=== PATIENT | female | born 1935 | race Caucasian/White ===

== ENCOUNTER 2017-10-10 17:07 | Inpatient (IN) | payer OTHER ==
--- NOTE | 2017-10-10 17:38 | PDOC ---
History of Present Illness - General Chief Complaint: Weakness Stated Complaint: WEAKNESS Time Seen by Provider: 10/10/17 17:38 - History of Present Illness Initial Comments: 10/10/17 18:34 The patient is a 81 year old female with a history of arthritis, falls who presents for evaluation generalized weakness. The patient is accompanied by her family who assist in providing the history. They note that the patient suffers from frequent falls and experienced a fall 4 days ago and was admitted to [facility] for evaluation with a negative work up at that time. However, they note that the patient has been experiencing worsening lower extremity weakness and generalized weakness over the past few days prompting their presentation to the ED for evaluation. The patient reports some cough, but otherwise denies fevers, chills, SOB, chest pain, nausea, vomiting, abdominal pain, or changes with urination or bowel movements. Past History - Past Medical History Allergies/Adverse Reactions: Allergies Allergy/AdvReac Type Severity Reaction Status Date / Time ciprofloxacin [From Cipro] Allergy Verified 10/11/17 04:35 Sulfa (Sulfonamide Allergy Verified 10/11/17 04:35 Antibiotics) Home Medications: Ambulatory Orders Ammonium Lactate Cream [Lac-Hydrin 12% *Cream*] 1 applic TP DAILY 10/11/17 Duloxetine HCl [Cymbalta] 30 mg PO DAILY 10/11/17 Esomeprazole Magnesium [Nexium 24Hr] 20 mg PO DAILY 10/11/17 Melatonin 5 mg PO HS 10/11/17 Primidone 50 mg PO BID 10/11/17 Tiotropium [place] [Spiriva] 1 inh IH DAILY 10/11/17 Zolpidem Tartrate [Ambien] 5 mg PO HS 10/11/17 Review of Systems - Review of Systems Comments:: 10/10/17 18:41 Constitutional: Generalized Weakness. No fevers, chills, malaise HEENT: No Rhinorrhea, nasal congestion, visual changes Cardiovascular: No chest pain, syncope, palpitations, lightheadedness Respiratory: Cough. No SOB, Hemoptysis, Gastrointestinal: No Abdominal pain, Nausea, Vomiting, Constipation, Diarrhea, Melena Genitourinary: No Dysuria, Frequency, Urgency, Hesitancy, Hematuria, Flank pain Musculoskeletal: No Myalgia, arthralgia Skin: No rashes, itching, bruising, pallor Neurologic: Headache. No Dizziness, Numbness, Weakness, or Tingling Psychiatric: No Hallucinations. No SI or HI *Physical Exam - Physical Exam Comments: 10/10/17 18:42 General Appearance: Nourished. No Apparent Distress HEENT: EOMI, LEEANN. No Pharyngeal Erythema, Tonsillar Exudate, Tonsillar Erythema Neck: No Cervical Lymphadenopathy Respiratory/Chest: Lungs Clear, Normal Breath Sounds. No Crackles, Rales, Rhonchi, Wheezing Cardiovascular: Regular Rhythm, Regular Rate. No Murmur, Gallops, Rubs Gastrointestinal/Abdominal: Normal Bowel Sounds, Soft. No Guarding, Rebound, Tenderness Musculoskeletal: No CVA Tenderness Extremity: Normal Capillary Refill Integumentary: Normal Color, Dry, Warm Neurologic: hims manager II-XII NML intact, Fully Oriented, Alert, Normal Mood/Affect, Normal Response, ED Treatment Course - LABORATORY CBC & Chemistry Diagram: 10/12/17 07:36 10/11/17 07:06 Medical Decision Making - Medical Decision Making 10/10/17 18:43 The patient is a 81 year old female with a history of arthritis, falls who presents for evaluation generalized weakness. Differential includes but is not limited to: UTI, Pneumonia, ACS, Infectious, Metabolic Derangement. Given the patient's history and physical exam, we will obtain a cbc, cmp, ua, urine culture, lactate, ekg, chest plain film, blood cultures to evaluate further for possible etiologies. We will treat in the meantime with iv tylenol and continue to monitor and reassess in the meantime. 10/10/17 19:09 Patient signed out to the night team pending lab results and imaging. Likely admission. *DC/Admit/Observation/Transfer Diagnosis at time of Disposition: Urinary tract infection - Discharge Dispostion Condition at time of disposition: Fair - Referrals - Patient Instructions - Post Discharge Activity
--- NOTE | 2017-10-10 18:01 | PDOC ---
Attending Attestation - HPI HPI: 10/10/17 19:01 patient is a 81 year old female, with a significant past medical history of frequent falls, central tremors(with deep brain stimulator), and arthritis, who presents to the emergency department with generalized weakness for several days. Per son, the patient was seen at [facility] 3 days ago s/p mechanical fall, where she did not hit her head. At the time, patient had blood work done, which were negative and patient was discharged. After being discharged, son reports worsening weakness in the lower extremities and difficulty ambulating. Patient reports headache and cough, but denies any fever, chills, dizziness, lightheadedness, or changes in vision. She denies any chest pain, shortness of breath, diaphoresis, or palpitations. She denies any abdominal pain, nausea, vomiting, diarrhea, or constipation. She denies any dysuria, hematuria, frequency, or urgency. - Medical Decision Making 10/10/17 19:01 Documentation prepared by Travon Loyola, acting as medical device for Mackenzie Galvan MD. <Travon Loyola - Last Filed: 10/10/17 19:01> - Resident Resident Name: Luis Rodriguez - ED Attending Attestation I have performed the following: I have examined & evaluated the patient, The case was reviewed & discussed with the resident, I agree w/resident's findings & plan, Exceptions are as noted - Physicial Exam PE: 10/15/17 19:56 General Appearance: Nourished. No Apparent Distress HEENT: EOMI, LEEANN. No Pharyngeal Erythema, Tonsillar Exudate, Tonsillar Erythema Neck: No Cervical Lymphadenopathy Respiratory/Chest: Lungs Clear, Normal Breath Sounds. No Crackles, Rales, Rhonchi, Wheezing Cardiovascular: Regular Rhythm, Regular Rate. No Murmur, Gallops, Rubs Gastrointestinal/Abdominal: Normal Bowel Sounds, Soft. No Guarding, Rebound, Tenderness Musculoskeletal: No CVA Tenderness Extremity: Normal Capillary Refill Integumentary: Normal Color, Dry, Warm Neurologic: end frazer II-XII NML intact, Fully Oriented, Alert, Normal Mood/Affect, Normal Response, - Medical Decision Making Ms Bustos presents to the ER with c/o generalized weakness. Large differential Labs sent UA sent All labs pending Pt Signed out to the overnight team Anticipate admission <Mackenzie Galvan - Last Filed: 10/15/17 19:58>
[2017-10-10] MEDS ORDERED: ACETAMINOPHEN 1000 MG/100 ML VIAL (NON FORMULARY) IVPB ONE (18:45)
--- NOTE | 2017-10-10 19:08 | PDOC ---
*Physical Exam - Vital Signs Last Vital Signs Temp Pulse Resp BP Pulse Ox 98.7 F 87 20 109/65 94 L 10/10/17 17:48 10/10/17 17:48 10/10/17 17:48 10/10/17 17:48 10/10/17 17:48 ED Treatment Course - LABORATORY CBC & Chemistry Diagram: 10/10/17 18:00 10/10/17 18:00 Medical Decision Making - Medical Decision Making 81 yo woman with pmh of mechanical fall on Sunday, presenting with fatigue and LE weakness. EKG, non-con CT pending. Sign-out given by Dr. Rodriguez. Will likely admit to the hospitalist group. 10/10/17 19:07 *DC/Admit/Observation/Transfer Diagnosis at time of Disposition: Urinary tract infection Qualifiers: Urinary tract infection type: site unspecified Hematuria presence: without hematuria Qualified Code(s): N39.0 - Urinary tract infection, site not specified - Discharge Dispostion Condition at time of disposition: Fair Decision to Admit order: Yes Decision to Admit order Date/Time: Discussed case with Hospitalist Dr. Mcmahon. Will admit as Tele obs. 10/11/17 01:33 - Referrals - Patient Instructions - Post Discharge Activity
[2017-10-10] MEDS ORDERED: ACETAMINOPHEN INJECTION 100 ML IVPB ONE (19:09)
[2017-10-10 19:19] LABS: BASO % 0.5 % (0-2.0); EOS % 2.2 % (0-4.5); HEMATOCRIT 39.7 % (32.4-45.2); HEMOGLOBIN 12.8 GM/dL (10.7-15.3); LYMPH % 18.8 % (8-40); MCH 28.1 pg (25.7-33.7); MCHC 32.4 g/dl (32.0-36.0); MEAN CELL VOLUME 86.8 fl (80-96); MEAN PLT VOLUME 7.4 fl (7.5-11.1); NEUT % 66.5 % (42.8-82.8); PLATELET COUNT 177 K/MM3 (134-434); RBC 4.57 M/mm3 (3.60-5.2); RDW 16.3 % (11.6-15.6); WHITE BLOOD COUNT 3.6 K/mm3 (4.0-10.0)
[2017-10-10 20:00] LABS: INR 1.1 (0.82-1.09); PROTHROMBIN TIME (PATIENT) 12.4 SEC (9.7-13.0)
[2017-10-10 20:03] LABS: ACTIVATED PTT 27.8 SECONDS (26.9-34.4)
[2017-10-10] MEDS ORDERED: SODIUM CHLORIDE 1,000 ML IV STA (22:07)
[2017-10-10 22:48] LABS: ALBUMIN 3.5 g/dl (3.5-5.0); ALK PHOS 78 U/L (32-92); ANION GAP 5 (8-16); BILIRUBIN,TOTAL < 0.5 mg/dl (0.2-1.0); BLOOD UREA NITROGEN 20 mg/dl (7-18); CALCIUM 8.5 mg/dl (8.4-10.2); CHLORIDE 100 mmol/L (98-107); CO2 29 mmol/L (22-28); CREATININE 0.9 mg/dl (0.6-1.3); GLUCOSE,RANDOM 103 mg/dl (74-106); POTASSIUM 4.5 mmol/L (3.5-5.1); SGOT/AST 19 U/L (10-42); SGPT/ALT 10 U/L (10-40); SODIUM 134 mmol/L (136-145); TOT PROT 6.7 g/dl (6.4-8.3)
[2017-10-10 23:00] LABS: URINE APPEARANCE CLEAR; URINE BILIRUBIN NEGATIVE (<2.0 mg/dL); URINE COLOR DKYELLOW; URINE GLUCOSE (UA) NEGATIVE (NEGATIVE); URINE KETONE TRACE (NEGATIVE); URINE NITRITE NEGATIVE (NEGATIVE); URINE UROBILINOGEN NEGATIVE mg/dL (0.2-1.0)
[2017-10-10 23:07] LABS: URINE LEUK ESTERASE 2+ (NEGATIVE); URINE PROTEIN 1+ (NEGATIVE)
[2017-10-10 23:29] LABS: URINE MUCUS RARE
[2017-10-10] MEDS ORDERED: KETOROLAC TROMETHAMINE 30 MG/1 ML VIAL IVPUSH ONE (23:52)
[2017-10-11] MEDS ORDERED: KETOROLAC TROMETHAMINE 30 MG/1 ML VIAL ONE (00:02)
--- NOTE | 2017-10-11 02:05 | HP ---
CHIEF COMPLAINT: le weakness PCP: HISTORY OF PRESENT ILLNESS: 81 yr old woman with hx of tremors s/p Deep brain stimulator placement, chronic back pain, arthritis presents from [facility] c/o lower extremity weakness since Sunday. She woke up on Sunday feeling weak and felt like she was unable to weight bear or move her legs in bed. She was taken to [facility] where they kept her in the ED without any investigation and after several hours she was discharged being told that there was nothing wrong. She spent Sunday and Sunday in bed, she fell on Sunday - a mechinical slip out of bed onto the floor, an aide at the facility helped get her back into bed. denies LOC or head trauma. She does not feel that the weakness had gotten any better or worse over the last two days. due to no improvement, she was brought to the ED. She had been had been having multiple falls for some time. also c/o urinary retention and constipation for past several days and headache since this morning. feels like she has been losing weight during the last month because of poor appetite. She was brought by her son from [place] to live at the assisted living facility 2 months ago at baseline she uses a rolling walker. denies chest pain, sob, palpiations, abdominal pain, dysuria, fever, cough. ER course was notable for: (1) urinalysis with 6wbc, +ketones, +leuk est (2) (3) Recent Travel: from [place] PAST MEDICAL HISTORY: tremors arthritis PAST SURGICAL HISTORY: b/l knee replacements 2007 and 2013 Deep brain stimulator placement 2011 Social History: Smoking: remote hx, occasionally had a cigarette Alcohol: denies Drugs: medical marijuana, smoked in [place] under physician direction for chronic back pain, [facility] use [facility]. now she says she takes prescribed opiates for pain. Family History: [place] Allergies No Known Allergies Allergy (Verified 10/10/17 18:34) HOME MEDICATIONS: pt does not recall her all her medications: recalls she takes something for her tremors; Mysoline and nexium for occasional heart burn REVIEW OF SYSTEMS CONSTITUTIONAL: Absent: fever, chills, diaphoresis, generalized weakness, malaise, loss of appetite, weight change HEENT: Absent: rhinorrhea, nasal congestion, throat pain, throat swelling, difficulty swallowing, mouth swelling, ear pain, eye pain, visual changes CARDIOVASCULAR: Present: peripheral edema Absent: chest pain, syncope, palpitations, irregular heart rate, lightheadedness , RESPIRATORY: Absent: cough, shortness of breath, dyspnea with exertion, orthopnea, wheezing, stridor, hemoptysis GASTROINTESTINAL: Present: constipation, Absent: abdominal pain, abdominal distension, nausea, vomiting, diarrhea, melena , hematochezia GENITOURINARY: Absent: dysuria, frequency, urgency, hesitancy, hematuria, flank pain, genital pain MUSCULOSKELETAL: Present: back pain, Absent: myalgia, arthralgia, joint swelling, neck pain SKIN: Absent: rash, itching, pallor HEMATOLOGIC/IMMUNOLOGIC: Absent: easy bleeding, easy bruising, lymphadenopathy, frequent infections ENDOCRINE: Present: unexplained weight loss, poor appetite Absent: unexplained weight gain, , heat intolerance, cold intolerance NEUROLOGIC: Present: headache, unsteady gait, Absent: focal weakness or paresthesias, dizziness, seizure, mental status changes, bladder or bowel incontinence PHYSICAL EXAMINATION Vital Signs - 24 hr 10/10/17 10/10/17 17:48 23:20 Temperature 98.7 F 98.1 F Pulse Rate 87 Pulse Rate [ 80 Apical] Respiratory 20 20 Rate Blood Pressure 109/65 Blood Pressure 118/67 [Right Arm] O2 Sat by Pulse 94 L 95 Oximetry (%) GENERAL: Awake, alert, and fully oriented, in no acute distress. HEAD: Normal with no signs of trauma. EYES: Pupils equal, round and reactive to light, extraocular movements intact, sclera anicteric, conjunctiva clear. No lid lag. EARS, NOSE, THROAT:oropharynx clear without exudates. Moist mucous membranes. NECK: Normal range of motion, supple without lymphadenopathy, JVD, or masses. no bruits no thyromegaly LUNGS: Breath sounds equal, clear to auscultation bilaterally. No wheezes, and no crackles. No accessory muscle use. HEART: Regular rate and rhythm, normal S1 and S2 without murmur, rub or gallop. CHEST: right upper with DPS device subq - overlying skin intact no erythema no tenderness ABDOMEN: Soft, nontender, not distended, normoactive bowel sounds, no guarding, no rebound, no masses. No hepatomegaly or splenomegaly. MUSCULOSKELETAL: No CVA tenderness. ulnar deviation in b/l MCP joints. resting tremor in b/l hands. UPPER EXTREMITIES: 2+ pulses, warm, well-perfused. No cyanosis. No clubbing. No peripheral edema. LOWER EXTREMITIES: 2+ pulses, warm, well-perfused. TTP anterior shins b/l. briuse in right medial knee. abrasion on mid-left clemons - so s/s of cellulitis. 1 + b/l peripheral edema. well-healed b/l knee scars anteriorly NEUROLOGICAL: Cranial nerves II-XII intact. Normal speech. facial symmetry. 3/ 5 b/l hand microwave technician, 4/5 biceps/triceps/shoulder extension and flexion. sensation intact on face, arms, forearms and hands. 4/5 b/l hip extension and flexion, 4/ 5 b/l knee extension and flexion. 3/5 plantar/dorsiflexion in right ankle. 4/5 plantar and dorsiflexion in left ankle. SKIN: Warm, dry, normal turgor, no rashes noted, normal capillary refill. Laboratory Results - last 24 hr 10/10/17 10/10/17 10/10/17 18:00 18:00 18:00 WBC 3.6 L RBC 4.57 Hgb 12.8 Hct 39.7 MCV 86.8 MCH 28.1 MCHC 32.4 RDW 16.3 H Plt Count 177 MPV 7.4 L Neutrophils % 66.5 Lymphocytes % 18.8 Monocytes % 12.0 H Eosinophils % 2.2 Basophils % 0.5 Nucleated RBC % 0 PT with INR 12.40 INR 1.10 PTT (Actin FS) 27.8 Sodium 134 L Potassium 4.5 Chloride 100 Carbon Dioxide 29 H Anion Gap 5 L BUN 20 H Creatinine 0.9 Creat Clearance w eGFR > 60 Random Glucose 103 Calcium 8.5 Total Bilirubin < 0.5 AST 19 ALT 10 Alkaline Phosphatase 78 Troponin I Total Protein 6.7 Albumin 3.5 Urine Color Urine Appearance Urine pH Ur Specific [place] Urine Protein Urine Glucose (UA) Urine Ketones Urine Blood Urine Nitrite Urine Bilirubin Urine Urobilinogen Ur Leukocyte Esterase Urine WBC (Auto) Urine RBC (Auto) Urine Mucus 10/10/17 10/10/17 18:00 22:13 WBC RBC Hgb Hct MCV MCH MCHC RDW Plt Count MPV Neutrophils % Lymphocytes % Monocytes % Eosinophils % Basophils % Nucleated RBC % PT with INR INR PTT (Actin FS) Sodium Potassium Chloride Carbon Dioxide Anion Gap BUN Creatinine Creat Clearance w eGFR Random Glucose Calcium Total Bilirubin AST ALT Alkaline Phosphatase Troponin I < 0.03 Total Protein Albumin Urine Color Dkyellow Urine Appearance Clear Urine pH 5.0 Ur Specific [place] 1.025 Urine Protein 1+ H Urine Glucose (UA) Negative Urine Ketones Trace H Urine Blood 1+ H Urine Nitrite Negative Urine Bilirubin Negative Urine Urobilinogen Negative Ur Leukocyte Esterase 2+ H Urine WBC (Auto) 6 Urine RBC (Auto) 25 Urine Mucus Rare Active Medications Heparin Sodium (Porcine) (Heparin -) 5,000 unit SQ BID ARIN ASSESSMENT/PLAN: 81 yr old woman with hx of tremors, arthritis brought in for LE progressive weakness found to have UTI placed on observation for further evaluation. #UTI - ucx pending - levaquin IVPB was given in ED, pt does not endorse UTI s/s, monitor off abx for now - Qtc 454 #Unsteady gait/lower extremity weakness - ddx include infectious process, deconditioning, progression of arthritis, frailty - PT evaluation, CT scan of head without any acute pathological findings to account for LE weakness - may need subacute-rehab vs outpt physical therapy - check mag/phos/tsh/rpr/vit b12 to r.o any other cause - fall risk precautions - continuous bedrest #Constipation - colace/senna initially, may escalate to miralax if no improvement #urinary retention - bladder scan to eval for retention - scan on floor showed 450cc, silver placed #tremors - medications will need to be checked - Primidone 50mg ordered until dose can be verified #chronic pain - tyelonol 650mg q6hr ordered prn, caution with opiates in elderly until pt's home medications can be verified. #DVT prophylaxis - hep BID #diet - regular Visit type - Emergency Visit Emergency Visit: Yes ED Registration Date: 10/11/17 Care time: The patient presented to the Emergency Department on the above date and was hospitalized for further evaluation of their emergent condition. - New Patient This patient is new to me today: Yes Date on this admission: 10/11/17 - Critical Care Critical Care patient: No Hospitalist Screening - Colonoscopy Questionnaire Colonoscopy Questionnaire: Colonoscopy Questionnaire - Patient: 50 - 75 years old and never had a screening colonoscopy: Unknown History of colon or rectal polyps, or CA: Unknown History of IBD, Crohn's disease or UC: Unknown History of abdominal radiation therapy as a child: Unknown - Relative: 1 with colon or rectal CA, or polyps at age 60 or younger: Unknown Colon or rectal CA diagnosed at age 45 or younger: Unknown Multiple relatives with colon or rectal CA: Unknown - Outcome: Screening Result: Negative Screen
--- NOTE | 2017-10-11 04:07 | PN ---
Teaching Attending Note Name of Resident: Elbert Esparza ATTENDING PHYSICIAN STATEMENT I saw and evaluated the patient. Chart, data, imaging reviewed. I reviewed the resident's note and discussed the case with the resident. I agree with the resident's findings and plan as documented. SUBJECTIVE: 81 yr old woman with hx of tremors s/p Deep brain stimulator placement, chronic back pain, arthritis presented from [facility] c/o generalized weakness, more so in lower extremities b/l. Has been having multiple falls. Denies LOC or head trauma. Seen in [facility] for unsteady gait and d/c. Ambulates with rolling walker. OBJECTIVE: Last Vital Signs Temp Pulse Resp BP Pulse Ox 98.0 F 74 18 108/64 94 L 10/11/17 01:48 10/11/17 01:48 10/11/17 01:48 10/11/17 01:48 10/11/17 01:48 general -nad, aaox3 heent- moist oral mucosa neck-supple, no jvd cv-s1+s2+rrr chest- cta b/l abdomen -soft, nt ext- bruising on lower ext Abnormal Lab Results 10/10/17 10/10/17 10/10/17 18:00 18:00 22:13 WBC 3.6 L RDW 16.3 H MPV 7.4 L Monocytes % 12.0 H Sodium 134 L Carbon Dioxide 29 H Anion Gap 5 L BUN 20 H Urine Protein 1+ H Urine Ketones Trace H Urine Blood 1+ H Ur Leukocyte Esterase 2+ H CT scan of head reviewed- neg for any acute ischemic process [id number] ASSESSMENT AND PLAN: #Unsteady gait/lower extremity weakness-head ct wnl -bed rest -fall precautions -check orthostatics -PT evaluation -gentle iv fluid hydration -may need subacute-rehab vs outpt physical therapy -check electrolytes, supplement prn -tsh continue home meds for chronic medical issues dvt ppx-heparin sc
[2017-10-11 07:48] LABS: BASO % 0.5 % (0-2.0); EOS % 3.2 % (0-4.5); HEMATOCRIT 33.9 % (32.4-45.2); HEMOGLOBIN 11.2 GM/dL (10.7-15.3); LYMPH % 17.3 % (8-40); MCH 28.3 pg (25.7-33.7); MEAN CELL VOLUME 85.8 fl (80-96); MEAN PLT VOLUME 6.8 fl (7.5-11.1); MONO % 9.5 % (3.8-10.2); NEUT % 69.5 % (42.8-82.8); PLATELET COUNT 148 K/MM3 (134-434); RBC 3.96 M/mm3 (3.60-5.2); RDW 16.4 % (11.6-15.6); WHITE BLOOD COUNT 3.2 K/mm3 (4.0-10.0)
[2017-10-11 08:21] LABS: CHLORIDE 102 mmol/L (98-107); SODIUM 136 mmol/L (136-145)
[2017-10-11 08:31] LABS: ANION GAP 5 (8-16); BLOOD UREA NITROGEN 18 mg/dL (7-18); CALCIUM 7.5 mg/dL (8.5-10.1); CO2 29 mmol/L (21-32); CREATININE 0.8 mg/dL (0.55-1.02); GLUCOSE,RANDOM 97 mg/dL (74-106); MAGNESIUM 2.2 mg/dL (1.8-2.4); PHOSPHOROUS 3.5 mg/dL (2.5-4.9)
--- NOTE | 2017-10-11 09:06 | PN ---
Physical Exam: SUBJECTIVE: Patient seen and examined OBJECTIVE: Vital Signs Period Temp Pulse Resp BP Sys/Sinclair Pulse Ox Last 24 Hr 98.0 F-98.7 F 74-87 18-20 108-118/60-67 94-95 GENERAL: NAD, awake, alert, and fully oriented, intention tremor noted. HEENT: EOMI, KARYNA, sclera anicteric, dry-moist mucosa without any erythema or plaques seen LUNGS: CTA bilaterally, no wheezes, no crackles, no accessory muscle use. HEART: RRR, S1, S2 without murmur ABDOMEN: Soft, NT/ND, normoactive bowel sounds, no guarding, no hepatomegaly, no masses. EXTREMITIES: 2+ DP pulses, warm, well-perfused, no edema. NEUROLOGICAL: lockstitch waistline joiner II-XII intact. Normal slower speech w/o problems recalling or with understanding. facial symmetry. 4/5 b/l hand nutritional services director, Strength 4/5 b/l shoulder shrug and arm extension flexion. Strength 4/5 lower extremity flexion extension. Sensation dulled with small area at superior lateral aspect of LExt. Babinski upgoing L foot?; unequivocal R foot. Gait not observed PSYCH: Normal mood, normal affect. SKIN: Warm, dry, no rashes noted. Slight superficial laceration? on L lower ext covered with bandage Laboratory Results - last 24 hr 10/10/17 10/10/17 10/10/17 18:00 18:00 18:00 WBC 3.6 L RBC 4.57 Hgb 12.8 Hct 39.7 MCV 86.8 MCH 28.1 MCHC 32.4 RDW 16.3 H Plt Count 177 MPV 7.4 L Neutrophils % 66.5 Lymphocytes % 18.8 Monocytes % 12.0 H Eosinophils % 2.2 Basophils % 0.5 Nucleated RBC % 0 PT with INR 12.40 INR 1.10 PTT (Actin FS) 27.8 Sodium 134 L Potassium 4.5 Chloride 100 Carbon Dioxide 29 H Anion Gap 5 L BUN 20 H Creatinine 0.9 Creat Clearance w eGFR > 60 Random Glucose 103 Lactic Acid Calcium 8.5 Phosphorus Magnesium Total Bilirubin < 0.5 AST 19 ALT 10 Alkaline Phosphatase 78 Troponin I Total Protein 6.7 Albumin 3.5 Vitamin B12 TSH Urine Color Urine Appearance Urine pH Ur Specific [place] Urine Protein Urine Glucose (UA) Urine Ketones Urine Blood Urine Nitrite Urine Bilirubin Urine Urobilinogen Ur Leukocyte Esterase Urine WBC (Auto) Urine RBC (Auto) Urine Mucus 10/10/17 10/10/17 10/10/17 18:00 18:00 22:13 WBC RBC Hgb Hct MCV MCH MCHC RDW Plt Count MPV Neutrophils % Lymphocytes % Monocytes % Eosinophils % Basophils % Nucleated RBC % PT with INR INR PTT (Actin FS) Sodium Potassium Chloride Carbon Dioxide Anion Gap BUN Creatinine Creat Clearance w eGFR Random Glucose Lactic Acid 0.9 Calcium Phosphorus Magnesium Total Bilirubin AST ALT Alkaline Phosphatase Troponin I < 0.03 Total Protein Albumin Vitamin B12 TSH Urine Color Dkyellow Urine Appearance Clear Urine pH 5.0 Ur Specific [place] 1.025 Urine Protein 1+ H Urine Glucose (UA) Negative Urine Ketones Trace H Urine Blood 1+ H Urine Nitrite Negative Urine Bilirubin Negative Urine Urobilinogen Negative Ur Leukocyte Esterase 2+ H Urine WBC (Auto) 6 Urine RBC (Auto) 25 Urine Mucus Rare 10/11/17 10/11/17 10/11/17 07:06 07:06 07:06 WBC 3.2 L RBC 3.96 Hgb 11.2 D Hct 33.9 MCV 85.8 MCH 28.3 MCHC 33.0 RDW 16.4 H Plt Count 148 MPV 6.8 L Neutrophils % 69.5 Lymphocytes % 17.3 Monocytes % 9.5 Eosinophils % 3.2 Basophils % 0.5 Nucleated RBC % 0 PT with INR INR PTT (Actin FS) Sodium 136 Potassium 4.0 Chloride 102 Carbon Dioxide 29 Anion Gap 5 L BUN 18 Creatinine 0.8 Creat Clearance w eGFR Random Glucose 97 Lactic Acid Calcium 7.5 L Phosphorus 3.5 Magnesium 2.2 Total Bilirubin AST ALT Alkaline Phosphatase Troponin I Total Protein Albumin Vitamin B12 TSH 1.59 Urine Color Urine Appearance Urine pH Ur Specific [place] Urine Protein Urine Glucose (UA) Urine Ketones Urine Blood Urine Nitrite Urine Bilirubin Urine Urobilinogen Ur Leukocyte Esterase Urine WBC (Auto) Urine RBC (Auto) Urine Mucus 10/11/17 07:06 WBC RBC Hgb Hct MCV MCH MCHC RDW Plt Count MPV Neutrophils % Lymphocytes % Monocytes % Eosinophils % Basophils % Nucleated RBC % PT with INR INR PTT (Actin FS) Sodium Potassium Chloride Carbon Dioxide Anion Gap BUN Creatinine Creat Clearance w eGFR Random Glucose Lactic Acid Calcium Phosphorus Magnesium Total Bilirubin AST ALT Alkaline Phosphatase Troponin I Total Protein Albumin Vitamin B12 Cancelled TSH Urine Color Urine Appearance Urine pH Ur Specific [place] Urine Protein Urine Glucose (UA) Urine Ketones Urine Blood Urine Nitrite Urine Bilirubin Urine Urobilinogen Ur Leukocyte Esterase Urine WBC (Auto) Urine RBC (Auto) Urine Mucus Active Medications Generic Name Dose Route Start Last Admin Trade Name Freq PRN Reason Stop Dose Admin Acetaminophen 650 mg 10/11/17 06:00 Tylenol - PO Q6H PRN PAIN LEVEL 5-10 Heparin Sodium (Porcine) 5,000 unit 10/11/17 10:00 Heparin - SQ BID [facility] Primidone 50 mg 10/11/17 22:00 Mysoline - PO [facility] Senna/Docusate Sodium 1 tablet 10/11/17 22:00 Pericolace - PO [facility] ASSESSMENT/PLAN:
[2017-10-11] MEDS ORDERED: KETOROLAC TROMETHAMINE 30 MG/1 ML VIAL IVPUSH ONE (09:51)
[2017-10-11] MEDS: HEPARIN NA (PORCINE) 5,000 UNITS/ML 1ML VIAL SQ SCH ×2 (10:13→22:03)
[2017-10-11] MEDS: PANTOPRAZOLE 40 MG TABLET (FP) PO SCH (13:52)
[2017-10-11] MEDS: DULoxetine HCL 30 MG CAPSULE.DR (FP) PO SCH (13:52)
[2017-10-11] MEDS ORDERED: SODIUM CHLORIDE 1,000 ML IV SCH (15:15)
--- NOTE | 2017-10-11 16:31 | EKG ---
Test Reason : Blood Pressure : / mmHG Vent. Rate : 079 BPM Atrial Rate : 079 BPM P-R Int : 154 ms QRS Dur : 084 ms QT Int : 396 ms P-R-T Axes : 043 -33 038 degrees QTc Int : 454 ms NORMAL SINUS RHYTHM LEFT AXIS DEVIATION LOW VOLTAGE QRS ABNORMAL ECG NO PREVIOUS ECGS AVAILABLE Confirmed by LIBIA SUBRAMANIAN, ES ([id number]) on 10/11/2017 4:30:59 PM Referred By: Confirmed By:ES REZA MD
--- NOTE | 2017-10-11 18:33 | PN ---
Teaching Attending Note Name of Resident: Jose Alexander ATTENDING PHYSICIAN STATEMENT I saw and evaluated the patient. I reviewed the resident's note and discussed the case with the resident. I agree with the resident's findings and plan as documented. SUBJECTIVE: Patient reports loss of sensation in her lower legs with weakness of both legs. OBJECTIVE: Vital Signs Period Temp Pulse Resp BP Sys/Sinclair Pulse Ox Last 24 Hr 98.0 F-98.7 F 74-83 18-20 108-118/60-67 94-95 HEART: S1S2, RRR LUNGS: Clear ABDOMEN: Soft, non-tender, non-distended, normal BS EXTREMITIES: No edema NEUROLOGICAL: Alert, (+) intention tremor, decreased sensation over anterior lower legs, plantar reflex extensor on left Laboratory Results - last 24 hr 10/10/17 10/10/17 10/10/17 18:00 18:00 18:00 WBC 3.6 L RBC 4.57 Hgb 12.8 Hct 39.7 MCV 86.8 MCH 28.1 MCHC 32.4 RDW 16.3 H Plt Count 177 MPV 7.4 L Neutrophils % 66.5 Lymphocytes % 18.8 Monocytes % 12.0 H Eosinophils % 2.2 Basophils % 0.5 Nucleated RBC % 0 PT with INR 12.40 INR 1.10 PTT (Actin FS) 27.8 Sodium 134 L Potassium 4.5 Chloride 100 Carbon Dioxide 29 H Anion Gap 5 L BUN 20 H Creatinine 0.9 Creat Clearance w eGFR > 60 Random Glucose 103 Lactic Acid Calcium 8.5 Phosphorus Magnesium Total Bilirubin < 0.5 AST 19 ALT 10 Alkaline Phosphatase 78 Troponin I Total Protein 6.7 Albumin 3.5 Vitamin B12 TSH Urine Color Urine Appearance Urine pH Ur Specific [place] Urine Protein Urine Glucose (UA) Urine Ketones Urine Blood Urine Nitrite Urine Bilirubin Urine Urobilinogen Ur Leukocyte Esterase Urine WBC (Auto) Urine RBC (Auto) Urine Mucus RPR Titer 10/10/17 10/10/17 10/10/17 18:00 18:00 22:13 WBC RBC Hgb Hct MCV MCH MCHC RDW Plt Count MPV Neutrophils % Lymphocytes % Monocytes % Eosinophils % Basophils % Nucleated RBC % PT with INR INR PTT (Actin FS) Sodium Potassium Chloride Carbon Dioxide Anion Gap BUN Creatinine Creat Clearance w eGFR Random Glucose Lactic Acid 0.9 Calcium Phosphorus Magnesium Total Bilirubin AST ALT Alkaline Phosphatase Troponin I < 0.03 Total Protein Albumin Vitamin B12 TSH Urine Color Dkyellow Urine Appearance Clear Urine pH 5.0 Ur Specific [place] 1.025 Urine Protein 1+ H Urine Glucose (UA) Negative Urine Ketones Trace H Urine Blood 1+ H Urine Nitrite Negative Urine Bilirubin Negative Urine Urobilinogen Negative Ur Leukocyte Esterase 2+ H Urine WBC (Auto) 6 Urine RBC (Auto) 25 Urine Mucus Rare RPR Titer 10/11/17 10/11/17 10/11/17 07:06 07:06 07:06 WBC 3.2 L RBC 3.96 Hgb 11.2 D Hct 33.9 MCV 85.8 MCH 28.3 MCHC 33.0 RDW 16.4 H Plt Count 148 MPV 6.8 L Neutrophils % 69.5 Lymphocytes % 17.3 Monocytes % 9.5 Eosinophils % 3.2 Basophils % 0.5 Nucleated RBC % 0 PT with INR INR PTT (Actin FS) Sodium 136 Potassium 4.0 Chloride 102 Carbon Dioxide 29 Anion Gap 5 L BUN 18 Creatinine 0.8 Creat Clearance w eGFR Random Glucose 97 Lactic Acid Calcium 7.5 L Phosphorus 3.5 Magnesium 2.2 Total Bilirubin AST ALT Alkaline Phosphatase Troponin I Total Protein Albumin Vitamin B12 1219 H TSH 1.59 Urine Color Urine Appearance Urine pH Ur Specific [place] Urine Protein Urine Glucose (UA) Urine Ketones Urine Blood Urine Nitrite Urine Bilirubin Urine Urobilinogen Ur Leukocyte Esterase Urine WBC (Auto) Urine RBC (Auto) Urine Mucus RPR Titer 10/11/17 10/11/17 07:06 07:06 WBC RBC Hgb Hct MCV MCH MCHC RDW Plt Count MPV Neutrophils % Lymphocytes % Monocytes % Eosinophils % Basophils % Nucleated RBC % PT with INR INR PTT (Actin FS) Sodium Potassium Chloride Carbon Dioxide Anion Gap BUN Creatinine Creat Clearance w eGFR Random Glucose Lactic Acid Calcium Phosphorus Magnesium Total Bilirubin AST ALT Alkaline Phosphatase Troponin I Total Protein Albumin Vitamin B12 Cancelled TSH Urine Color Urine Appearance Urine pH Ur Specific [place] Urine Protein Urine Glucose (UA) Urine Ketones Urine Blood Urine Nitrite Urine Bilirubin Urine Urobilinogen Ur Leukocyte Esterase Urine WBC (Auto) Urine RBC (Auto) Urine Mucus RPR Titer Nonreactive Current Medications Generic Name Dose Route Start Last Admin Trade Name Freq PRN Reason Stop Dose Admin Acetaminophen 650 mg 10/11/17 06:00 Tylenol - PO Q6H PRN PAIN LEVEL 5-10 Duloxetine HCl 30 mg 10/11/17 13:30 10/11/17 13:52 Cymbalta - PO 30 mg DAILY ARIN Administration Heparin Sodium (Porcine) 5,000 unit 10/11/17 10:00 10/11/17 10:13 Heparin - SQ 5,000 unit BID ARIN Administration Sodium Chloride 1,000 mls @ 50 mls/hr 10/11/17 15:15 Normal Saline - IV 10/12/17 11:14 ASDIR ARIN Melatonin 5 mg 10/11/17 22:00 Melatonin PO HS ARIN Pantoprazole Sodium 40 mg 10/11/17 13:30 10/11/17 13:52 Protonix - PO 40 mg DAILY ARIN Administration Primidone 50 mg 10/11/17 22:00 Mysoline - PO HS ARIN Senna/Docusate Sodium 1 tablet 10/11/17 22:00 Pericolace - PO HS ARIN Tiotropium [place] 1 puff 10/12/17 10:00 Spiriva - IH DAILY ARIN Zolpidem Tartrate 5 mg 10/11/17 22:00 Ambien - PO HS PRN INSOMNIA ASSESSMENT AND PLAN: This is a 81 year old woman with a history of tremors, deep brain stimulator, arthritis, chronic low back pain who presented to the ED from [facility] with bilateral leg weakness. 1. Bilateral leg weakness with loss of sensation in lower legs, chronic low back pain, abnormal plantar reflex on left, urinary retention - Head CT shows no acute process; bilateral electrode stimulators terminating in thalami; moderate enlargement of lateral and third ventricles likely secondary to atrophy; moderate microvascular ischemic changes - B12 is high - TSH is normal - RPR is negative - Neurology consult - Physical therapy - Maintain Troncoso catheter 2. Constipation - Continue PeriColace 3. Intention tremor - Continue Primidone
[2017-10-11] MEDS: MELATONIN 5 MG TABLETS PO SCH (22:03)
[2017-10-11] MEDS: SENNOSIDES/DOCUSATE COMBO (SENNA PLUS) TABLET (UD) PO SCH (22:03)
[2017-10-11] MEDS: ZOLPIDEM TARTRATE 5 MG TABLET PO PRN (22:03)
[2017-10-11] MEDS: PRIMIDONE 50 MG TABLET PO SCH (22:04)
[2017-10-12 08:02] LABS: HEMATOCRIT 36.5 % (32.4-45.2); HEMOGLOBIN 12.1 GM/dL (10.7-15.3); MCH 28.3 pg (25.7-33.7); MCHC 33.1 g/dl (32.0-36.0); MEAN CELL VOLUME 85.4 fl (80-96); PLATELET COUNT 148 K/MM3 (134-434); RBC 4.27 M/mm3 (3.60-5.2); WHITE BLOOD COUNT 2.8 K/mm3 (4.0-10.0)
--- NOTE | 2017-10-12 09:15 | PN ---
Physical Exam: UPDATE 1: Pt spiked fever to 102.4; rpt Bcx?, tylenol 650mg; rocephin already given today SUBJECTIVE: No complaints today. Pt noted to have episode of vomiting NB/NB emesis last night after her food. Gentle hydration started and pt was monitored had no reoccurance without any anti-emetic intervention. OBJECTIVE: Vital Signs Period Temp Pulse Resp BP Sys/Sinclair Pulse Ox Last 24 Hr 98.1 F-99.1 F 71-85 20-20 110-126/63-78 96-96 GENERAL: NAD, awake, alert, and fully oriented, intention tremor noted. HEENT: EOMI, KARYNA, sclera anicteric, dry-moist mucosa without any erythema or plaques seen LUNGS: CTA bilaterally, no wheezes, no crackles, no accessory muscle use. HEART: RRR, S1, S2 without murmur ABDOMEN: Soft, NT/ND, normoactive bowel sounds, no guarding, no hepatomegaly, no masses. EXTREMITIES: 2+ DP pulses, warm, well-perfused, no edema. NEUROLOGICAL: stockroom worker II-XII intact. Normal slower speech w/o problems recalling or with understanding. facial symmetry. 4/5 b/l hand stockroom worker, Strength 4/5 b/l shoulder shrug and arm extension flexion. Strength 4/5 lower extremity flexion extension. Sensation dulled with small area at superior lateral aspect of LExt. Babinski upgoing L foot?; unequivocal R foot. Gait not observed PSYCH: Normal mood, normal affect. SKIN: Warm, dry, no rashes noted. Slight superficial laceration? on L lower ext covered with bandage Laboratory Results - last 24 hr 10/11/17 10/11/17 10/12/17 07:06 07:06 07:36 WBC 2.8 L RBC 4.27 Hgb 12.1 Hct 36.5 MCV 85.4 MCH 28.3 MCHC 33.1 RDW 16.0 H Plt Count 148 MPV 7.0 L Vitamin B12 1219 H RPR Titer Nonreactive Active Medications Generic Name Dose Route Start Last Admin Trade Name Freq PRN Reason Stop Dose Admin Acetaminophen 650 mg 10/11/17 06:00 Tylenol - PO Q6H PRN PAIN LEVEL 5-10 Duloxetine HCl 30 mg 10/11/17 13:30 10/11/17 13:52 Cymbalta - PO 30 mg DAILY ARIN Administration Heparin Sodium (Porcine) 5,000 unit 10/11/17 10:00 10/11/17 22:03 Heparin - SQ 5,000 unit BID ARIN Administration Sodium Chloride 1,000 mls @ 50 mls/hr 10/11/17 15:15 10/11/17 16:21 Normal Saline - IV 10/12/17 11:14 50 mls/hr ASDIR ARIN Administration Melatonin 5 mg 10/11/17 22:00 10/11/17 22:03 Melatonin PO 5 mg HS ARIN Administration Pantoprazole Sodium 40 mg 10/11/17 13:30 10/11/17 13:52 Protonix - PO 40 mg DAILY ARIN Administration Primidone 50 mg 10/11/17 22:00 10/11/17 22:04 Mysoline - PO 50 mg HS ARIN Administration Senna/Docusate Sodium 1 tablet 10/11/17 22:00 10/11/17 22:03 Pericolace - PO 1 tablet HS ARIN Administration Tiotropium [place] 1 puff 10/12/17 10:00 Spiriva - IH DAILY ARIN Zolpidem Tartrate 5 mg 10/11/17 22:00 10/11/17 22:03 Ambien - PO 5 mg HS PRN Administration INSOMNIA ASSESSMENT/PLAN: 1) Weakness --Neuro consulted --f/u AChR ab test; doubt MG in this population anyway --Likely not demylinating however cannot get MRI due to brain stimulator unknown compatibility --Discussed with son who states stimulator is medtronic brand and will try to obtain records 2) Leukopenia --Rocephin 1gm started for empiric treatment for UTI in setting of urinary retention and leukopenia with unequivocal Ua --Cultures negative, however unknown if taken prior to Levaquin given in ED 3) Urinary retention --Maintain silver --Draining clear/yellow urine appropriately FEN: Fluids: Gentle hydration (NS50cc/hr 1 bag) Electrolyte abnormalities: None Nutrition: sodium-controlled diet PPX: DVT - Heparin SQ GI - Protonix 40mg qdaily Dispo: continue monitoring; son will try to obtain some records Case discussed with Dr. Lau and son (Jose serrato in EMR) Jose Alexander, DO - IM PGY-1 Visit type - Emergency Visit Emergency Visit: No - New Patient This patient is new to me today: No - Critical Care Critical Care patient: No
--- NOTE | 2017-10-12 09:24 | PN ---
Progress Note (short form) - Note Progress Note: Neurology History of Present Illness The patient is a 81 year old female with a history of arthritis, falls who presents for evaluation generalized weakness. Per notes, the patient suffers from frequent falls and experienced a fall 4 days ago and was admitted to [facility] for evaluation with a negative work up at that time. However , reportedly the patient has been experiencing worsening lower extremity weakness and generalized weakness over the past few days prompting presentation to the ED. Has essential remtor and with deep brain stimulator. Spoke to resident yesterday regarding case and concern for weakness, generalized. No focal deficits on exam and strength is intact. CT head completed and reviewed and without acute changes. Past History - Past Medical History Allergies/Adverse Reactions: Allergies Allergy/AdvReac Type Severity Reaction Status Date / Time No Known Allergies Allergy Verified 10/10/17 18:34 REVIEW OF SYSTEMS CONSTITUTIONAL: Absent: fever, chills, diaphoresis, generalized weakness, malaise, loss of appetite, weight change HEENT: Absent: rhinorrhea, nasal congestion, throat pain, throat swelling, difficulty swallowing, mouth swelling, ear pain, eye pain, visual changes CARDIOVASCULAR: Present: peripheral edema Absent: chest pain, syncope, palpitations, irregular heart rate, lightheadedness , RESPIRATORY: Absent: cough, shortness of breath, dyspnea with exertion, orthopnea, wheezing, stridor, hemoptysis GASTROINTESTINAL: Present: constipation, Absent: abdominal pain, abdominal distension, nausea, vomiting, diarrhea, melena , hematochezia GENITOURINARY: Absent: dysuria, frequency, urgency, hesitancy, hematuria, flank pain, genital pain MUSCULOSKELETAL: Present: back pain, Absent: myalgia, arthralgia, joint swelling, neck pain SKIN: Absent: rash, itching, pallor HEMATOLOGIC/IMMUNOLOGIC: Absent: easy bleeding, easy bruising, lymphadenopathy, frequent infections ENDOCRINE: Present: unexplained weight loss, poor appetite Absent: unexplained weight gain, , heat intolerance, cold intolerance NEUROLOGIC: Present: headache, unsteady gait, Absent: focal weakness or paresthesias, dizziness, seizure, mental status changes, bladder or bowel incontinence PHYSICAL EXAMINATION Vital Signs Temperature 98.1 F 10/12/17 06:00 Pulse Rate 77 10/12/17 06:00 Respiratory Rate 20 10/12/17 06:00 Blood Pressure 126/63 10/12/17 06:00 O2 Sat by Pulse Oximetry (%) 96 10/12/17 00:00 GENERAL: Awake, alert, and fully oriented, in no acute distress. HEAD: Normal with no signs of trauma. EYES: Pupils equal, round and reactive to light, extraocular movements intact, sclera anicteric, conjunctiva clear. No lid lag. EARS, NOSE, THROAT:oropharynx clear without exudates. Moist mucous membranes. NECK: Normal range of motion, supple without lymphadenopathy, JVD, or masses. no bruits no thyromegaly LUNGS: Breath sounds equal, clear to auscultation bilaterally. No wheezes, and no crackles. No accessory muscle use. HEART: Regular rate and rhythm, normal S1 and S2 without murmur, rub or gallop. CHEST: right upper with DPS device subq - overlying skin intact no erythema no tenderness ABDOMEN: Soft, nontender, not distended, normoactive bowel sounds, no guarding, no rebound, no masses. No hepatomegaly or splenomegaly. MUSCULOSKELETAL: No CVA tenderness. ulnar deviation in b/l MCP joints. resting tremor in b/l hands. UPPER EXTREMITIES: 2+ pulses, warm, well-perfused. No cyanosis. No clubbing. No peripheral edema. LOWER EXTREMITIES: 2+ pulses, warm, well-perfused. TTP anterior shins b/l. briuse in right medial knee. abrasion on mid-left clemons - so s/s of cellulitis. 1 + b/l peripheral edema. well-healed b/l knee scars anteriorly NEUROLOGICAL: Cranial nerves II-XII intact. Normal speech. facial symmetry. 4/ 5 b/l hand engineer chief, 5-/5 biceps/triceps/shoulder extension and flexion. sensation intact on face, arms, forearms and hands. 5-/5 b/l hip extension and flexion, 5- /5 b/l knee extension and flexion. Gait deferred SKIN: Warm, dry, normal turgor, no rashes noted, normal capillary refill. CBCD WBC 2.8 K/mm3 (4.0-10.0) L 10/12/17 07:36 RBC 4.27 M/mm3 (3.60-5.2) 10/12/17 07:36 Hgb 12.1 GM/dL (10.7-15.3) 05/25/18 07:36 Hct 36.5 % (32.4-45.2) 10/12/17 07:36 MCV 85.4 fl (80-96) 10/12/17 07:36 MCHC 33.1 g/dl (32.0-36.0) 10/12/17 07:36 RDW 16.0 % (11.6-15.6) H 10/12/17 07:36 Plt Count 148 K/MM3 (134-434) 10/12/17 07:36 MPV 7.0 fl (7.5-11.1) L 10/12/17 07:36 CMP Sodium 136 mmol/L (136-145) 10/11/17 07:06 Potassium 4.0 mmol/L (3.5-5.1) 10/11/17 07:06 Chloride 102 mmol/L (98-107) 10/11/17 07:06 Carbon Dioxide 29 mmol/L (21-32) 10/11/17 07:06 Anion Gap 5 (8-16) L 10/11/17 07:06 BUN 18 mg/dL (7-18) 10/11/17 07:06 Creatinine 0.8 mg/dL (0.55-1.02) 10/11/17 07:06 Creat Clearance w eGFR > 60 (>60) 10/10/17 18:00 Random Glucose 97 mg/dL (74-106) 10/11/17 07:06 Calcium 7.5 mg/dL (8.5-10.1) L 10/11/17 07:06 Total Bilirubin < 0.5 mg/dl (0.2-1.0) 10/10/17 18:00 AST 19 U/L (10-42) 10/10/17 18:00 ALT 10 U/L (10-40) 10/10/17 18:00 Alkaline Phosphatase 78 U/L (32-92) 10/10/17 18:00 Total Protein 6.7 g/dl (6.4-8.3) 10/10/17 18:00 Albumin 3.5 g/dl (3.5-5.0) 10/10/17 18:00 CARDIAC ENZYMES Troponin I < 0.03 ng/ml (0.00-0.05) 10/10/17 18:00 CT head reviewed Medical Decision Making 81 year old female with a history of arthritis, falls who presents for evaluation generalized weakness. Per notes, the patient suffers from frequent falls and experienced a fall 4 days ago and was admitted to [facility] for evaluation with a negative work up at that time. However, reportedly the patient has been experiencing worsening lower extremity weakness and generalized weakness over the past few days prompting presentation to the ED. Has essential remtor and with deep brain stimulator. Spoke to resident yesterday regarding case and concern for weakness, generalized. No focal deficits on exam and strength is intact. CT head completed and reviewed and without acute changes. Would treat underlying medical issues (infection, dehydration, etc.). No CVA/infarct. Myastenia lab to r/o though not likely to be etiology. PT/OT as tolerated. Consider rehab for strength building and mobility. Fall precautions.
[2017-10-12] MEDS ORDERED: PT OWN MED DRAWER 7, Y5N ONE ×2 (11:09→21:37)
[2017-10-12] MEDS ORDERED: DEXTROSE 5%-WATER - 50 ML IVPB ONE (11:10)
[2017-10-12] MEDS ORDERED: cefTRIAXone SODIUM 1 GM VIAL ONE (11:10)
[2017-10-12] MEDS: DULoxetine HCL 30 MG CAPSULE.DR (FP) PO SCH (11:11)
[2017-10-12] MEDS: HEPARIN NA (PORCINE) 5,000 UNITS/ML 1ML VIAL SQ SCH ×2 (11:11→22:01)
[2017-10-12] MEDS: PANTOPRAZOLE 40 MG TABLET (FP) PO SCH (11:11)
[2017-10-12] MEDS: CEFTRIAXONE 1 GM in DEXTROSE 5%-WATER - 50 ML IVPB SCH (11:12)
[2017-10-12] MEDS: TIOTROPIUM BROMIDE 18 MCG CAPSULES IH SCH (11:16)
--- NOTE | 2017-10-12 17:29 | PN ---
Teaching Attending Note Name of Resident: Jose Alexander ATTENDING PHYSICIAN STATEMENT I saw and evaluated the patient. I reviewed the resident's note and discussed the case with the resident. I agree with the resident's findings and plan as documented. SUBJECTIVE: No complaints. OBJECTIVE: Vital Signs Period Temp Pulse Resp BP Sys/Sinclair Pulse Ox Last 24 Hr 97.9 F-99.1 F 71-85 18-20 100-126/49-78 96-96 HEART: S1S2, RRR LUNGS: Clear ABDOMEN: Soft, non-tender, non-distended, normal BS EXTREMITIES: No edema Laboratory Results - last 24 hr 10/12/17 07:36 WBC 2.8 L RBC 4.27 Hgb 12.1 Hct 36.5 MCV 85.4 MCH 28.3 MCHC 33.1 RDW 16.0 H Plt Count 148 MPV 7.0 L Current Medications Generic Name Dose Route Start Last Admin Trade Name Freq PRN Reason Stop Dose Admin Acetaminophen 650 mg 10/11/17 06:00 Tylenol - PO Q6H PRN PAIN LEVEL 5-10 Duloxetine HCl 30 mg 10/11/17 13:30 10/12/17 11:11 Cymbalta - PO 30 mg DAILY ARIN Administration Heparin Sodium (Porcine) 5,000 unit 10/11/17 10:00 10/12/17 11:11 Heparin - SQ 5,000 unit BID ARIN Administration Ceftriaxone Sodium 1 gm/ 50 mls @ 100 mls/hr 10/12/17 10:00 10/12/17 11:12 Dextrose IVPB 100 mls/hr DAILY ARIN Administration Protocol Melatonin 5 mg 10/11/17 22:00 10/11/17 22:03 Melatonin PO 5 mg HS ARIN Administration Pantoprazole Sodium 40 mg 10/11/17 13:30 10/12/17 11:11 Protonix - PO 40 mg DAILY ARIN Administration Primidone 50 mg 10/11/17 22:00 10/11/17 22:04 Mysoline - PO 50 mg HS ARIN Administration Senna/Docusate Sodium 1 tablet 10/11/17 22:00 10/11/17 22:03 Pericolace - PO 1 tablet HS ARIN Administration Tiotropium [place] 1 puff 10/12/17 10:00 10/12/17 11:16 Spiriva - IH 1 puff DAILY ARIN Administration Zolpidem Tartrate 5 mg 10/11/17 22:00 10/11/17 22:03 Ambien - PO 5 mg HS PRN Administration INSOMNIA ASSESSMENT AND PLAN: This is a 81 year old woman with a history of tremors, deep brain stimulator, arthritis, chronic low back pain who presented to the ED from [facility] with bilateral leg weakness. 1. Bilateral leg weakness with loss of sensation in lower legs, chronic low back pain, abnormal plantar reflex on left, urinary retention - Head CT shows no acute process; bilateral electrode stimulators terminating in thalami; moderate enlargement of lateral and third ventricles likely secondary to atrophy; moderate microvascular ischemic changes - B12 is high - TSH is normal - RPR is negative - Neurology consult appreciated - Physical therapy - Maintain Troncoso catheter 2. Possible UTI - On Ceftriaxone empirically (day 2 of abx) 3. Constipation - Continue PeriColace 4. Intention tremor - Continue Primidone 5. Disposition - Patient walked 8 feet with PT today - plan for short term rehab
[2017-10-12] MEDS: ACETAMINOPHEN 325 MG TABLET (FP) PO PRN (17:50)
[2017-10-12] MEDS ORDERED: IBUPROFEN 600 MG TABLET (FP) PO ONE (21:34)
[2017-10-12] MEDS ORDERED: SODIUM CHLORIDE 1,000 ML IV SCH (21:45)
[2017-10-12] MEDS: SENNOSIDES/DOCUSATE COMBO (SENNA PLUS) TABLET (UD) PO SCH (22:02)
[2017-10-12] MEDS: PRIMIDONE 50 MG TABLET PO SCH (22:02)
[2017-10-12] MEDS: MELATONIN 5 MG TABLETS PO SCH (22:02)
[2017-10-13] MEDS ORDERED: PT OWN MED DRAWER 7, Y5N ONE ×2 (10:10→21:38)
[2017-10-13] MEDS ORDERED: cefTRIAXone SODIUM 1 GM VIAL ONE (10:10)
[2017-10-13] MEDS ORDERED: DEXTROSE 5%-WATER - 50 ML IVPB ONE (10:11)
[2017-10-13] MEDS: HEPARIN NA (PORCINE) 5,000 UNITS/ML 1ML VIAL SQ SCH ×2 (10:14→21:59)
[2017-10-13] MEDS: TIOTROPIUM BROMIDE 18 MCG CAPSULES IH SCH (10:14)
[2017-10-13] MEDS: CEFTRIAXONE 1 GM in DEXTROSE 5%-WATER - 50 ML IVPB SCH (10:14)
[2017-10-13] MEDS: PANTOPRAZOLE 40 MG TABLET (FP) PO SCH (10:14)
[2017-10-13] MEDS: DULoxetine HCL 30 MG CAPSULE.DR (FP) PO SCH (10:14)
[2017-10-13] MEDS: ACETAMINOPHEN 325 MG TABLET (FP) PO PRN (13:53)
--- NOTE | 2017-10-13 17:19 | PN ---
Progress Note (short form) - Note Progress Note: c/o generalized weakness. improved from yesterday. denies Cp, SOB, fever, chills , N/V/C/D Current Medications Generic Name Dose Route Start Last Admin Trade Name Freq PRN Reason Stop Dose Admin Acetaminophen 650 mg 10/11/17 06:00 10/13/17 13:53 Tylenol - PO 650 mg Q6H PRN Administration PAIN LEVEL 5-10 Duloxetine HCl 30 mg 10/11/17 13:30 10/13/17 10:14 Cymbalta - PO 30 mg DAILY ARIN Administration Heparin Sodium (Porcine) 5,000 unit 10/11/17 10:00 10/13/17 10:14 Heparin - SQ 5,000 unit BID ARIN Administration Ceftriaxone Sodium 1 gm/ 50 mls @ 100 mls/hr 10/12/17 10:00 10/13/17 10:14 Dextrose IVPB 100 mls/hr DAILY ARIN Administration Protocol Sodium Chloride 1,000 mls @ 50 mls/hr 10/12/17 21:45 10/12/17 21:59 Normal Saline - IV 10/13/17 17:44 50 mls/hr ASDIR ARIN Administration Melatonin 5 mg 10/11/17 22:00 10/12/17 22:02 Melatonin PO 5 mg HS ARIN Administration Pantoprazole Sodium 40 mg 10/11/17 13:30 10/13/17 10:14 Protonix - PO 40 mg DAILY ARIN Administration Primidone 50 mg 10/11/17 22:00 10/12/17 22:02 Mysoline - PO 50 mg HS ARIN Administration Senna/Docusate Sodium 1 tablet 10/11/17 22:00 10/12/17 22:02 Pericolace - PO 1 tablet HS ARIN Administration Tiotropium [place] 1 puff 10/12/17 10:00 10/13/17 10:14 Spiriva - IH 1 puff DAILY ARIN Administration Zolpidem Tartrate 5 mg 10/11/17 22:00 10/11/17 22:03 Ambien - PO 5 mg HS PRN Administration INSOMNIA Last Vital Signs Temp Pulse Resp BP Pulse Ox 97.8 F 82 20 121/70 98 10/13/17 14:01 10/13/17 14:01 10/13/17 14:01 10/13/17 14:01 10/12/17 21:00 General NAD CV S1 S2 + Lungs CTA B/L no wheezing/rales/rhonchi Abdomen soft NT/ND Extremities no pedal edema. +resting tremor Microbiology 10/10/17 18:20 Blood - Peripheral Venous Blood Culture - Preliminary NO GROWTH OBTAINED AFTER 48 HOURS, INCUBATION TO CONTINUE FOR 3 DAYS. 10/10/17 18:20 Blood - Peripheral Venous Blood Culture - Preliminary NO GROWTH OBTAINED AFTER 48 HOURS, INCUBATION TO CONTINUE FOR 3 DAYS. 10/10/17 22:13 Urine - Urine Clean Catch Urine Culture - Final Assessment and plan 81 year old woman with a history of tremors, deep brain stimulator, arthritis, chronic low back pain who presented to the ED from [facility] with bilateral leg weakness. 1. Bilateral leg weakness with loss of sensation in lower legs, chronic low back pain, abnormal plantar reflex on left, urinary retention-workup negative. head CT negative. neuro evaluated. will start bladder training trial to see if silver can be removed. 2. Possible UTI- Tm 102.4. afebrile since. cont ceftriaxone day 2. will d/c after 3 day course. f/u Cx 3. Constipation- Continue PeriColace 4. Intention tremor- Continue Primidone 5. DVT ppx- hep sq 6. will need LEXII. only ambulated 8ft with PT. possible d/c tomorrow to LEXII Visit type - Emergency Visit Emergency Visit: Yes ED Registration Date: 10/11/17 Care time: The patient presented to the Emergency Department on the above date and was hospitalized for further evaluation of their emergent condition. - New Patient This patient is new to me today: Yes Date on this admission: 10/13/17 - Critical Care Critical Care patient: No - Discharge Referral Referred to [facility] No
[2017-10-13] MEDS: SENNOSIDES/DOCUSATE COMBO (SENNA PLUS) TABLET (UD) PO SCH (21:58)
[2017-10-13] MEDS: ZOLPIDEM TARTRATE 5 MG TABLET PO PRN (21:58)
[2017-10-13] MEDS: MELATONIN 5 MG TABLETS PO SCH (21:58)
[2017-10-13] MEDS: PRIMIDONE 50 MG TABLET PO SCH (21:59)
[2017-10-14] MEDS: ACETAMINOPHEN 325 MG TABLET (FP) PO PRN ×2 (06:34→21:37)
[2017-10-14] MEDS ORDERED: cefTRIAXone SODIUM 1 GM VIAL ONE (09:02)
[2017-10-14] MEDS ORDERED: PT OWN MED DRAWER 7, Y5N ONE ×2 (09:02→21:06)
[2017-10-14] MEDS ORDERED: DEXTROSE 5%-WATER - 50 ML IVPB ONE (09:03)
[2017-10-14] MEDS: DULoxetine HCL 30 MG CAPSULE.DR (FP) PO SCH (09:17)
[2017-10-14] MEDS: PANTOPRAZOLE 40 MG TABLET (FP) PO SCH (09:17)
[2017-10-14] MEDS: CEFTRIAXONE 1 GM in DEXTROSE 5%-WATER - 50 ML IVPB SCH (09:17)
[2017-10-14] MEDS: HEPARIN NA (PORCINE) 5,000 UNITS/ML 1ML VIAL SQ SCH ×2 (09:17→21:37)
[2017-10-14] MEDS: TIOTROPIUM BROMIDE 18 MCG CAPSULES IH SCH (09:18)
--- NOTE | 2017-10-14 10:09 | PN ---
Physical Exam: SUBJECTIVE: Patient seen and examined at bedside silver removed at 2:30am patient still did not void OBJECTIVE: Vital Signs Period Temp Pulse Resp BP Sys/Sinclair Pulse Ox Last 24 Hr 97.8 F-101.0 F 79-87 18-20 121-142/70-79 98 GENERAL: The patient is awake, alert, and in no acute distress. HEAD: Normal with no signs of trauma. LUNGS: Breath sounds with fine crackles at bases bilaterally otherwise clear HEART: Regular rate and rhythm, S1, S2 ABDOMEN: Soft, nontender, nondistended, no suprapubic tenderness EXTREMITIES: warm, well-perfused, trace non pitting edema of lower extremities SKIN: Warm, clammy skin Active Medications Generic Name Dose Route Start Last Admin Trade Name Freq PRN Reason Stop Dose Admin Acetaminophen 650 mg 10/11/17 06:00 10/14/17 06:34 Tylenol - PO 650 mg Q6H PRN Administration PAIN LEVEL 5-10 Duloxetine HCl 30 mg 10/11/17 13:30 10/14/17 09:17 Cymbalta - PO 30 mg DAILY ARIN Administration Heparin Sodium (Porcine) 5,000 unit 10/11/17 10:00 10/14/17 09:17 Heparin - SQ 5,000 unit BID ARIN Administration Ceftriaxone Sodium 1 gm/ 50 mls @ 100 mls/hr 10/12/17 10:00 10/14/17 09:17 Dextrose IVPB 100 mls/hr DAILY ARIN Administration Protocol Melatonin 5 mg 10/11/17 22:00 10/13/17 21:58 Melatonin PO 5 mg HS ARIN Administration Pantoprazole Sodium 40 mg 10/11/17 13:30 10/14/17 09:17 Protonix - PO 40 mg DAILY ARIN Administration Primidone 50 mg 10/11/17 22:00 10/13/17 21:59 Mysoline - PO 50 mg HS ARIN Administration Senna/Docusate Sodium 1 tablet 10/11/17 22:00 10/13/17 21:58 Pericolace - PO 1 tablet HS ARIN Administration Tiotropium [place] 1 puff 10/12/17 10:00 10/14/17 09:18 Spiriva - IH 1 puff DAILY ARIN Administration Zolpidem Tartrate 5 mg 10/11/17 22:00 10/13/17 21:58 Ambien - PO 5 mg HS PRN Administration INSOMNIA ASSESSMENT/PLAN: Urinary retention: possible UTI as source vs constipation causing UTI Silver pulled out at 230am and still pending voiding needs bladder scan if does not void and if bladder has a large amount of urine will replace silver catheter patient did bladder training for last 24 hours Tmax 101.0 this AM continue ceftriaxone f/u cultures: negative so far Contipation: continue pericolace bilateral lower extremity weakness: f/u Ach receptor Ab test Leukopenia: continue to trend intention tremor: continue primidone FEN: no IVF no electrolyte issues dysphagia chopped PPx: HSQ Protonix PT consult pending discharge to [facility]-will hold off on discharge as patient was febrile this morning Case discussed with attending Dr. Rebolledo Visit type - Emergency Visit Emergency Visit: Yes ED Registration Date: 10/11/17 Care time: The patient presented to the Emergency Department on the above date and was hospitalized for further evaluation of their emergent condition. - New Patient This patient is new to me today: Yes Date on this admission: 10/14/17 - Critical Care Critical Care patient: No
[2017-10-14 12:51] LABS: BASO % 0.5 % (0-2.0); EOS % 3.1 % (0-4.5); HEMATOCRIT 34.7 % (32.4-45.2); HEMOGLOBIN 11.3 GM/dL (10.7-15.3); MCH 27.8 pg (25.7-33.7); MCHC 32.5 g/dl (32.0-36.0); MEAN CELL VOLUME 85.4 fl (80-96); MEAN PLT VOLUME 7.4 fl (7.5-11.1); MONO % 10.6 % (3.8-10.2); NEUT % 62.8 % (42.8-82.8); PLATELET COUNT 181 K/MM3 (134-434); RBC 4.06 M/mm3 (3.60-5.2); RDW 16.5 % (11.6-15.6)
--- NOTE | 2017-10-14 12:55 | PN ---
Teaching Attending Note Name of Resident: Riley Fernandez ATTENDING PHYSICIAN STATEMENT I saw and evaluated the patient. I reviewed the resident's note and discussed the case with the resident. I agree with the resident's findings and plan as documented. SUBJECTIVE:asymptomatic. denies Cp, SOB, fever, chills, N/V/C/D OBJECTIVE: Last Vital Signs Temp Pulse Resp BP Pulse Ox 101.0 F H 79 18 142/79 98 10/14/17 06:00 10/14/17 06:00 10/14/17 06:00 10/14/17 06:00 10/13/17 21:00 General NAD Abdomen soft NT/ND ASSESSMENT AND PLAN: 81 year old woman with a history of tremors, deep brain stimulator, arthritis, chronic low back pain who presented to the ED from [facility] with bilateral leg weakness. 1. Bilateral leg weakness with loss of sensation in lower legs, chronic low back pain, abnormal plantar reflex on left, urinary retention-workup negative. head CT negative. neuro evaluated. 2. urinary retention- bladder clamping trials yesterday. silver was removed and then repeat bladder scan showing >500cc. silver replaced. will need to maintain silver can f/u with urology as outpatient 2. Possible UTI- Tm 101.1. no symptoms. check CBC for luekocytosis. check UA. will repeat BCx if spikes again. cont ceftriaxone day 3. Ucx negative. 3. Constipation- Continue PeriColace 4. Intention tremor- Continue Primidone 5. DVT ppx- hep sq 6. will need LEXII. only ambulated 8ft with PT. accepted at [facility]. will d/c once afebrile 24H
[2017-10-14 13:53] VITALS: BMI 23.9
[2017-10-14 19:20] LABS: URINE APPEARANCE CLEAR; URINE BILIRUBIN NEGATIVE (<2.0 mg/dL); URINE COLOR YELLOW; URINE GLUCOSE (UA) NEGATIVE (NEGATIVE); URINE KETONE NEGATIVE (NEGATIVE); URINE NITRITE NEGATIVE (NEGATIVE); URINE PROTEIN NEGATIVE (NEGATIVE); URINE UROBILINOGEN NEGATIVE mg/dL (0.2-1.0)
[2017-10-14 19:22] LABS: URINE LEUK ESTERASE 1+ (NEGATIVE)
[2017-10-14 19:23] LABS: EPI CELLS RARE /HPF (FEW); URINE MUCUS RARE
[2017-10-14] MEDS: SENNOSIDES/DOCUSATE COMBO (SENNA PLUS) TABLET (UD) PO SCH (21:38)
[2017-10-14] MEDS: PRIMIDONE 50 MG TABLET PO SCH (21:38)
[2017-10-14] MEDS: MELATONIN 5 MG TABLETS PO SCH (23:29)
[2017-10-15] MEDS: ZOLPIDEM TARTRATE 5 MG TABLET PO PRN
[2017-10-15 07:29] LABS: BASO % 0.8 % (0-2.0); EOS % 3.2 % (0-4.5); HEMATOCRIT 35.4 % (32.4-45.2); HEMOGLOBIN 11.8 GM/dL (10.7-15.3); LYMPH % 21.2 % (8-40); MCH 28.5 pg (25.7-33.7); MCHC 33.4 g/dl (32.0-36.0); MEAN CELL VOLUME 85.1 fl (80-96); MEAN PLT VOLUME 7.4 fl (7.5-11.1); MONO % 11.6 % (3.8-10.2); NEUT % 63.2 % (42.8-82.8); PLATELET COUNT 210 K/MM3 (134-434); RBC 4.16 M/mm3 (3.60-5.2); RDW 16.1 % (11.6-15.6); WHITE BLOOD COUNT 4.4 K/mm3 (4.0-10.0)
[2017-10-15] MEDS ORDERED: DEXTROSE 5%-WATER - 50 ML IVPB ONE (11:46)
[2017-10-15] MEDS ORDERED: cefTRIAXone SODIUM 1 GM VIAL ONE (11:46)
[2017-10-15] MEDS ORDERED: PT OWN MED DRAWER 7, Y5N ONE (11:48)
[2017-10-15] MEDS: TIOTROPIUM BROMIDE 18 MCG CAPSULES IH SCH (11:49)
[2017-10-15] MEDS: CEFTRIAXONE 1 GM in DEXTROSE 5%-WATER - 50 ML IVPB SCH (11:50)
[2017-10-15] MEDS: PANTOPRAZOLE 40 MG TABLET (FP) PO SCH (11:51)
[2017-10-15] MEDS: DULoxetine HCL 30 MG CAPSULE.DR (FP) PO SCH (11:51)
[2017-10-15] MEDS: HEPARIN NA (PORCINE) 5,000 UNITS/ML 1ML VIAL SQ SCH (11:51)
[2017-10-15] MEDS: ACETAMINOPHEN 325 MG TABLET (FP) PO PRN (12:29)
--- NOTE | 2017-10-15 12:41 | PN ---
Progress Note (short form) - Note Progress Note: asymptomatic. denies CP, SOB, fever, chills, N/V/C/D Current Medications Generic Name Dose Route Start Last Admin Trade Name Liudmila PRN Reason Stop Dose Admin Acetaminophen 650 mg 10/11/17 06:00 10/15/17 12:29 Tylenol - PO 650 mg Q6H PRN Administration PAIN LEVEL 5-10 Duloxetine HCl 30 mg 10/11/17 13:30 10/15/17 11:51 Cymbalta - PO 30 mg DAILY ARIN Administration Heparin Sodium (Porcine) 5,000 unit 10/11/17 10:00 10/15/17 11:51 Heparin - SQ 5,000 unit BID ARIN Administration Ceftriaxone Sodium 1 gm/ 50 mls @ 100 mls/hr 10/12/17 10:00 10/15/17 11:50 Dextrose IVPB 100 mls/hr DAILY ARIN Administration Protocol Melatonin 5 mg 10/11/17 22:00 10/14/17 23:29 Melatonin PO 5 mg HS ARIN Administration Pantoprazole Sodium 40 mg 10/11/17 13:30 10/15/17 11:51 Protonix - PO 40 mg DAILY ARIN Administration Primidone 50 mg 10/11/17 22:00 10/14/17 21:38 Mysoline - PO 50 mg HS ARIN Administration Senna/Docusate Sodium 1 tablet 10/11/17 22:00 10/14/17 21:38 Pericolace - PO 1 tablet HS ARIN Administration Tiotropium [place] 1 puff 10/12/17 10:00 10/15/17 11:49 Spiriva - IH 1 puff DAILY ARIN Administration Zolpidem Tartrate 5 mg 10/11/17 22:00 10/15/17 00:00 Ambien - PO 5 mg HS PRN Administration INSOMNIA Last Vital Signs Temp Pulse Resp BP Pulse Ox 98.4 F 90 20 152/82 98 10/15/17 09:42 10/15/17 09:42 10/15/17 09:42 10/15/17 09:42 10/14/17 21:00 General NAD Abdomen soft NT/ND CBCD WBC 4.4 K/mm3 (4.0-10.0) 10/15/17 06:50 RBC 4.16 M/mm3 (3.60-5.2) 10/15/17 06:50 Hgb 11.8 GM/dL (10.7-15.3) 10/15/17 06:50 Hct 35.4 % (32.4-45.2) 10/15/17 06:50 MCV 85.1 fl (80-96) 10/15/17 06:50 MCHC 33.4 g/dl (32.0-36.0) 10/15/17 06:50 RDW 16.1 % (11.6-15.6) H 10/15/17 06:50 Plt Count 210 K/MM3 (134-434) 10/15/17 06:50 MPV 7.4 fl (7.5-11.1) L 10/15/17 06:50 ASSESSMENT AND PLAN: 81 year old woman with a history of tremors, deep brain stimulator, arthritis, chronic low back pain who presented to the ED from [facility] with bilateral leg weakness. 1. Bilateral leg weakness with loss of sensation in lower legs, chronic low back pain, abnormal plantar reflex on left, urinary retention-workup negative. head CT negative. neuro evaluated. 2. urinary retention-silver was removed and pt noted to be retaining. silver re- inserted. will need to maintain silver can f/u with urology as outpatient 3. Possible UTI- afebrile. no leukcytosis. all cx negative. repeat UA is improved. on Ceftriaxone day 4. will switch to keflex to complete 7 day course. 4. Hypocalcemia- start calcium supplements 5. Constipation- Continue PeriColace 6. Intention tremor- Continue Primidone 7. DVT ppx- hep sq 8. will need LEXII. only ambulated 8ft with PT. accepted at [facility]. d/c today Visit type - Emergency Visit Emergency Visit: Yes ED Registration Date: 10/11/17 Care time: The patient presented to the Emergency Department on the above date and was hospitalized for further evaluation of their emergent condition. - New Patient This patient is new to me today: No - Critical Care Critical Care patient: No - Discharge Referral Referred to [facility] No
[2017-10-15] MEDS ORDERED: POLYETHYLENE GLYCOL 3350 119 GM BTL PO SCH (13:15)
[2017-10-15 15:44] VITALS: BP 123/71; PULSE 83; TEMP 98
--- NOTE | 2017-10-16 23:58 | DS ---
Physical Exam: SUBJECTIVE: Patient seen and examined OBJECTIVE: PHYSICAL EXAM GENERAL: The patient is awake, alert, and fully oriented, in no acute distress. HEAD: Normal with no signs of trauma. EYES: PERRL, extraocular movements intact, sclera anicteric, conjunctiva clear. ENT: Ears normal, nares patent, oropharynx clear without exudates, moist mucous membranes. NECK: Trachea midline, full range of motion, supple. LUNGS: Breath sounds equal, clear to auscultation bilaterally, no wheezes, no crackles, no accessory muscle use. HEART: Regular rate and rhythm, S1, S2 without murmur, rub or gallop. ABDOMEN: Soft, nontender, nondistended, normoactive bowel sounds, no guarding, no rebound, no hepatosplenomegaly, no masses. EXTREMITIES: 2+ pulses, warm, well-perfused, no edema. NEUROLOGICAL: Cranial nerves II through XII grossly intact. Normal speech, gait not observed. PSYCH: Normal mood, normal affect. SKIN: Warm, dry, normal turgor, no rashes or lesions noted. LABS HOSPITAL COURSE: Date of Admission:10/11/17 Date of Discharge: 10/16/17 Discharge Summary Reason For Visit: UTI W/AMS UNABLE TO WALK Condition: Improved - Instructions Diet, Activity, Other Instructions: You came to the hospital because you were feeling weak. You were found to have a urinary tract infection which likely contributed to your weakness. You are on antibiotics. You received your dose for today. Continue taking the medication tomorrow, twice a day for 3 more days. You are leaving with a silver catheter in your bladder. Follow up with a urologist to have it removed. If you do not have a urologist information on one has been provided. call to make an appointment Continue to eat a dysphagia chopped diet. Continue to take stool softeners as needed. You should aim to have 1 bowel movement daily Your home medications have changed. Refer to medication list for these changes. Follow up with your primary care doctor in 1 week. Follow up with your neurologist in 1-2 weeks. if you do not have one information on the one you saw here has been provided If your symptoms worsen or develop fever (temp >101) return to the ER. Referrals: Quinten Rodriguez MD [Staff Physician] - ON STAFF,NOT [Primary Care Provider] - Devin Herrera MD [Staff Physician] - (urology) Disposition: [facility] - Home Medications Comprehensive Discharge Medication List: Ambulatory Orders Ammonium Lactate Cream [Lac-Hydrin 12% Cream -] 1 applic TP DAILY 10/11/17 Duloxetine HCl [Cymbalta] 30 mg PO DAILY 10/11/17 Esomeprazole Magnesium [Nexium 24Hr] 20 mg PO DAILY 10/11/17 Melatonin 5 mg PO HS 10/11/17 Primidone 50 mg PO BID 10/11/17 Tiotropium [place] [Spiriva] 1 inh IH DAILY 10/11/17 Zolpidem Tartrate [Ambien] 5 mg PO HS 10/11/17 Calcium Carb/Vitamin D3/Vit K1 [Calcium + D Soft Chewable Tab] 1 each PO DAILY # 30 tab.chew 10/15/17 Cephalexin [Keflex] 500 mg PO BID #6 capsule 10/15/17 Multivitamin [Daily Multiple Vitamin] 1 each PO DAILY #30 tablet 10/15/17 Polyethylene Glycol 3350 [Miralax (For Daily Use) -] 17 gm PO DAILY #1 bottle Sennosides/Docusate Sodium [Pericolace -] 1 tablet PO HS tablet 10/15/17 - Discharge Referral Referred to [facility] No
[2017-10-25 10:14] LABS: ACETYLCHOL RECEP BIND < 0.03 nmol/L (0.00-0.24)
== END 2017-10-15 15:57 | DRG 690 ==
LOC: JER 17:07 → JERBED 10-11 01:36 → UNDOADMOB 10-11 01:48 → JERBED 10-11 01:48 → J5S 10-11 02:26 → OBSVTOIN 10-11 13:21
PROVIDERS: ADMIT Internal Medicine; ATTEND Internal Medicine
PROC: 0T9B70Z Drainage of Bladder with Drainage Device, Via Natural or Artificial Opening (ICD-10-PCS; principal; 2017-10-11)
PROC: 0T9B70Z Drainage of Bladder with Drainage Device, Via Natural or Artificial Opening (ICD-10-PCS; 2017-10-15)
DX: N39.0 Urinary tract infection, site not specified (principal); R29.6 Repeated falls; R26.81 Unsteadiness on feet; K59.00 Constipation, unspecified; G25.0 Essential tremor; R33.9 Retention of urine, unspecified; G89.29 Other chronic pain; M19.90 Unspecified osteoarthritis, unspecified site; M54.5 Low back pain; Z96.653 Presence of artificial knee joint, bilateral; F17.210 Nicotine dependence, cigarettes, uncomplicated; D72.819 Decreased white blood cell count, unspecified; E83.51 Hypocalcemia
CPT/HCPCS: 36415; 70450-TC; 71045-TC-FY; 80048; 80053; 81003; 81015; 82607; 83519; 83605; 83735; 84100; 84443; 84484; 85025; 85027; 85610; 85730; 86593; 87040; 87086; 93005; 93010; 97116-GP; 97162-GP; 99283-25; G0378; J0131; J1644; J7030

== ENCOUNTER 2018-06-18 19:51 | Emergency (ER) | payer OTHER ==
[2018-06-18 19:55] VITALS: BMI 25.7
--- NOTE | 2018-06-18 19:59 | PDOC ---
Rapid Medical Evaluation Chief Complaint: Cold Symptoms Medical Evaluation: Allergies Allergy/AdvReac Type Severity Reaction Status Date / Time ciprofloxacin [From Cipro] Allergy Verified 10/11/17 04:35 Sulfa (Sulfonamide Allergy Verified 10/11/17 04:35 Antibiotics) 06/18/18 19:53 I have performed a brief in-person evaluation of this patient. The patient presents with a chief complaint of: 82 yo from an assisted living facility BIBEMS s/p fall off the bed, unwitnessed. Pt denies any CP/diziness prior to falling. Asymptomatic now. Not on anticoagulants. Also c/o a productive cough for 5 days, no fever/chills Pertinent physical exam findings: Afebrile. small R shoulder abrasion I have ordered the following: R shoulder xray, head CT, CXR The patient will proceed to the ED for further evaluation Discharge Disposition - Diagnosis Cough Fall Qualifiers: Encounter type: initial encounter Qualified Code(s): W19.XXXA - Unspecified fall, initial encounter - Referrals - Patient Instructions - Post Discharge Activity
--- NOTE | 2018-06-18 21:27 | PDOC ---
History of Present Illness <Lalita Beltran - Last Filed: 06/18/18 21:25> - General History Source: Patient, Family Exam Limitations: No Limitations - History of Present Illness Initial Comments: 06/18/18 21:45 The patient is an 82 year old female with a past medical history of dementia and parkinsons from [facility] who presents to the emergency department for evaluation of cough and fall. Patient reports worsening productive cough and weakness since Sunday evening. Patient reports associated shortness of breath secondary to congestion. As per son at bedside, patient has significant mobility issues and fell off the side of her bed today. Denies headstrike or loss of consciousness. The patient denies chest pain, dizziness, headache, fevers, chills, nausea, vomiting, diarrhea, constipation, urinary urgency/frequency, dysuria, and hematuria. Allergies: Ciprofloxacin, Sulfonamide Antibiotics Social History: No reported alcohol, cigarette, or drug use. PCP: [place] doctor (not on staff) Son: Jose Zavala ([phone]) <Chris Barksdale - Last Filed: 06/18/18 23:18> - General Chief Complaint: Cold Symptoms Stated Complaint: FALL/COUGH Time Seen by Provider: 06/18/18 20:02 Past History - Past Medical History Anemia: No Asthma: No Cancer: No Cardiac Disorders: No CVA: No COPD: No CHF: No Dementia: No Diabetes: No GI Disorders: Yes Disorders: No HTN: No Hypercholesterolemia: No Liver Disease: No Seizures: No Thyroid Disease: No - Surgical History Neurologic Surgery: Yes (Deep Brain Stimulator Implant) Orthopedic Surgery: Yes (L and R Knee replacement) - Suicide/Smoking/Psychosocial Hx Smoking History: Never smoked Have you smoked in the past 12 months: No Information on smoking cessation initiated: No Hx Alcohol Use: No Drug/Substance Use Hx: No <Lalita Beltran - Last Filed: 06/18/18 21:25> <Chris Barksdale - Last Filed: 06/18/18 23:18> - Past Medical History Allergies/Adverse Reactions: Allergies Allergy/AdvReac Type Severity Reaction Status Date / Time ciprofloxacin [From Cipro] Allergy Verified 06/18/18 19:55 Sulfa (Sulfonamide Allergy Verified 06/18/18 19:55 Antibiotics) Home Medications: Ambulatory Orders Ammonium Lactate Cream [Lac-Hydrin 12% Cream -] 1 applic TP DAILY 10/11/17 Duloxetine HCl [Cymbalta] 30 mg PO DAILY 10/11/17 Esomeprazole Magnesium [Nexium 24Hr] 20 mg PO DAILY 10/11/17 Melatonin 5 mg PO HS 10/11/17 Primidone 50 mg PO BID 10/11/17 Tiotropium [place] [Spiriva] 1 inh IH DAILY 10/11/17 Zolpidem Tartrate [Ambien] 5 mg PO HS 10/11/17 Calcium Carb/Vitamin D3/Vit K1 [Calcium + D Soft Chewable Tab] 1 each PO DAILY # 30 tab.chew 10/15/17 Cephalexin [Keflex] 500 mg PO BID #6 capsule 10/15/17 Multivitamin [Daily Multiple Vitamin] 1 each PO DAILY #30 tablet 10/15/17 Polyethylene Glycol 3350 [Miralax (For Daily Use) -] 17 gm PO DAILY #1 bottle Sennosides/Docusate Sodium [Pericolace -] 1 tablet PO HS tablet 10/15/17 Review of Systems - Review of Systems Able to Perform ROS?: Yes Comments:: 06/18/18 21:46 CONSTITUTIONAL: (+)generalized weakness. Absent: fever, chills, diaphoresis, malaise, loss of appetite HEENT: Absent: rhinorrhea, nasal congestion, throat pain, throat swelling, difficulty swallowing, mouth swelling, ear pain, eye pain, visual Changes CARDIOVASCULAR: Absent: chest pain, syncope, palpitations, irregular heart rate, lightheadedness , peripheral edema RESPIRATORY: (+)Cough. (+)shortness of breath. Absent: dyspnea with exertion, orthopnea, wheezing, stridor, hemoptysis GASTROINTESTINAL: Absent: abdominal pain, abdominal distension, nausea, vomiting, diarrhea, constipation, melena, hematochezia GENITOURINARY: Absent: dysuria, frequency, urgency, hesitancy, hematuria, flank pain, genital pain MUSCULOSKELETAL: Absent: myalgia, arthralgia, joint swelling SKIN: Absent: rash, itching, pallor HEMATOLOGIC/IMMUNOLOGIC: Absent: easy bleeding, easy bruising, lymphadenopathy, frequent infections ENDOCRINE: Absent: unexplained weight gain, unexplained weight loss, heat intolerance, cold intolerance NEUROLOGIC: (+)unsteady gait Absent: headache, focal weakness or paresthesias, dizziness, seizure, mental status changes, bladder or bowel incontinence PSYCHIATRIC: Absent: anxiety, depression, suicidal or homicidal ideation, hallucinations. <Chris Barksdale - Last Filed: 06/18/18 23:18> *Physical Exam - Vital Signs Last Vital Signs Temp Pulse Resp BP Pulse Ox 98.0 F 91 H 22 H 126/76 91 L 06/18/18 19:52 06/18/18 19:52 06/18/18 19:52 06/18/18 19:52 06/18/18 19:52 <Lalita Beltran - Last Filed: 06/18/18 21:25> - Vital Signs Last Vital Signs Temp Pulse Resp BP Pulse Ox 98.0 F 91 H 22 H 126/76 91 L 06/18/18 19:52 06/18/18 19:52 06/18/18 19:52 06/18/18 19:52 06/18/18 19:52 - Physical Exam Comments: 06/18/18 21:47 wnwd 82 y/o female in no acute distress head ncat neck supple oropharynx no exudates Heart RRR. No gallops, murmurs, or rubs. lungs (+)rhonchorous breath sounds abd soft,nontender ext no e/c/c, MAEx4 skin warm and dry,no rashes neuro Alert,no gross focal neuro deficits <Chris Barksdale - Last Filed: 06/18/18 23:18> Moderate Sedation - Procedure Monitoring Vital Signs: Procedure Monitoring Vital Signs Temperature 98.0 F 06/18/18 19:52 Pulse Rate 91 H 06/18/18 19:52 Respiratory Rate 22 H 06/18/18 19:52 Blood Pressure 126/76 06/18/18 19:52 O2 Sat by Pulse Oximetry (%) 91 L 06/18/18 19:52 <Lalita Beltran - Last Filed: 06/18/18 21:25> - Procedure Monitoring Vital Signs: Procedure Monitoring Vital Signs Temperature 98.0 F 06/18/18 19:52 Pulse Rate 91 H 06/18/18 19:52 Respiratory Rate 22 H 06/18/18 19:52 Blood Pressure 126/76 06/18/18 19:52 O2 Sat by Pulse Oximetry (%) 91 L 06/18/18 19:52 <Chris Barksdale - Last Filed: 06/18/18 23:18> Medical Decision Making - Medical Decision Making 06/18/18 21:25 82-year-old female brought in from assisted living [place] for cough. This started on Sunday. Patient has complaint of cough and shortness of breath. She is 92% pulse ox on room air. She does have rhonchorous breath sounds and a productive cough. Patient's past medical history is dementia, Parkinson's. Patient does have a resting tremor The son reports that she has significant mobility issues and fell off the side of her bed today. CAT scan of the head did not show any evidence of any acute intracranial pathology, bilateral, electrolyte stimulators in place and ventricular dilatation, probably due to central atrophy, and less likely obstructive hydrocephalus, there is no change since her previous CAT scan of 10/11/2015 Interval development of mild to moderate bilateral ethmoid sinus opacification is seen consistent with sinusitis that may be acute or chronic <Lalita Beltran - Last Filed: 06/18/18 21:25> *DC/Admit/Observation/Transfer <Lalita Beltran - Last Filed: 06/18/18 21:25> - Attestations Scribe Attestion: Documentation prepared by hCris Barksdale, acting as director biomedical engineering for Lalita Beltran MD. <Chris Barksdale - Last Filed: 06/18/18 23:18> Diagnosis at time of Disposition: Cough Fall Qualifiers: Encounter type: initial encounter Qualified Code(s): W19.XXXA - Unspecified fall, initial encounter
[2018-06-18] MEDS ORDERED: ALBUTEROL SO4 2.5/IPRATROPIUM 0.5 INH SOL 3 ML VIAL.NEB. NEB ONE ×2 (22:33→22:54)
[2018-06-18 23:32] LABS: BASO % 1.3 % (0-2.0); EOS % 1.9 % (0-4.5); HEMATOCRIT 35.7 % (32.4-45.2); HEMOGLOBIN 11.9 GM/dL (10.7-15.3); LYMPH % 26.3 % (8-40); MCH 30.6 pg (25.7-33.7); MCHC 33.5 g/dl (32.0-36.0); MEAN CELL VOLUME 91.4 fl (80-96); MEAN PLT VOLUME 6.5 fl (7.5-11.1); MONO % 10.3 % (3.8-10.2); NEUT % 60.2 % (42.8-82.8); PLATELET COUNT 232 K/MM3 (134-434); RDW 15.9 % (11.6-15.6); WHITE BLOOD COUNT 4.3 K/mm3 (4.0-10.0)
[2018-06-19 00:15] LABS: ALBUMIN 3.2 g/dl (3.4-5.0); ALK PHOS 169 U/L (45-117); ANION GAP 6 MMOL/L (8-16); BILIRUBIN,TOTAL 0.2 mg/dL (0.2-1); BLOOD UREA NITROGEN 16 mg/dL (7-18); CHLORIDE 99 mmol/L (98-107); CO2 29 mmol/L (21-32); CREATININE 0.9 mg/dL (0.55-1.3); GLUCOSE,RANDOM 119 mg/dL (74-106); POTASSIUM 3.7 mmol/L (3.5-5.1); SGOT/AST 45 U/L (15-37); SGPT/ALT 60 U/L (13-61); SODIUM 134 mmol/L (136-145); TOT PROT 6.4 g/dl (6.4-8.2)
[2018-06-19 00:29] LABS: INR 1.1 (0.83-1.09)
[2018-06-19] MEDS ORDERED: AZITHROMYCIN IVPB 500 MG in DEXTROSE 5%-WATER - 250 ML IVPB ONE (00:49)
[2018-06-19] MEDS ORDERED: CEFTRIAXONE 1,000 MG in DEXTROSE 5%-WATER - 50 ML IVPB STA (00:49)
[2018-06-19] MEDS ORDERED: AZITHROMYCIN IVPB 500 MG/250 ML BAG IVPB ONE (03:06)
[2018-06-19] MEDS ORDERED: CEFTRIAXONE 1 GM/50 ML BAG ONE (03:07)
[2018-06-19 03:19] LABS: URINE APPEARANCE CLEAR; URINE BILIRUBIN NEGATIVE (<2.0 mg/dL); URINE COLOR AMBER; URINE GLUCOSE (UA) NEGATIVE (NEGATIVE); URINE KETONE 1+ (NEGATIVE); URINE LEUK ESTERASE NEGATIVE (NEGATIVE); URINE NITRITE NEGATIVE (NEGATIVE); URINE PROTEIN 1+ (NEGATIVE); URINE UROBILINOGEN 4.0 E.U/dl mg/dL (0.2-1.0)
[2018-06-19 03:23] VITALS: BP 114/71; PULSE 84; TEMP 99.9
[2018-06-19 03:30] LABS: URINE MUCUS RARE
[2018-06-19] MEDS ORDERED: SODIUM CHLORIDE 500 ML IV STA (03:44)
--- NOTE | 2018-06-19 03:53 | PDOC ---
*Physical Exam - Vital Signs Last Vital Signs Temp Pulse Resp BP Pulse Ox 99.9 F H 84 16 114/71 98 06/19/18 03:22 06/19/18 03:22 06/19/18 03:22 06/19/18 03:22 06/19/18 03:22 ED Treatment Course - LABORATORY CBC & Chemistry Diagram: 06/18/18 23:12 06/18/18 23:12 - ADDITIONAL ORDERS Additional order review: Laboratory Results 06/19/18 06/18/18 06/18/18 03:00 23:12 23:12 PT with INR 13.00 INR 1.10 H Sodium Potassium Chloride Carbon Dioxide Anion Gap BUN Creatinine Creat Clearance w eGFR Random Glucose Calcium Total Bilirubin AST ALT Alkaline Phosphatase Troponin I B-Natriuretic Peptide 279.7 Total Protein Albumin Urine Color Amarilys Urine Appearance Clear Urine pH 5.0 Ur Specific [place] 1.025 Urine Protein 1+ H Urine Glucose (UA) Negative Urine Ketones 1+ H Urine Blood 1+ H Urine Nitrite Negative Urine Bilirubin Negative Urine Urobilinogen 4.0 e.u/dl H Ur Leukocyte Esterase Negative 06/18/18 06/18/18 23:12 23:12 PT with INR INR Sodium 134 L Potassium 3.7 Chloride 99 Carbon Dioxide 29 Anion Gap 6 L BUN 16 Creatinine 0.9 Creat Clearance w eGFR > 60 Random Glucose 119 H Calcium 8.0 L Total Bilirubin 0.2 AST 45 H ALT 60 Alkaline Phosphatase 169 H Troponin I Cancelled < 0.02 B-Natriuretic Peptide Total Protein 6.4 Albumin 3.2 L Urine Color Urine Appearance Urine pH Ur Specific [place] Urine Protein Urine Glucose (UA) Urine Ketones Urine Blood Urine Nitrite Urine Bilirubin Urine Urobilinogen Ur Leukocyte Esterase 06/18/18 23:12 RBC 3.90 MCV 91.4 MCHC 33.5 RDW 15.9 H MPV 6.5 L D Neutrophils % 60.2 Lymphocytes % 26.3 D Monocytes % 10.3 H Eosinophils % 1.9 Basophils % 1.3 - Medications Given in the ED: ED Medications Discontinued Medications Generic Name Dose Route Start Last Admin Trade Name Freq PRN Reason Stop Dose Admin Albuterol/Ipratropium 1 amp 06/18/18 22:33 06/18/18 22:55 Duoneb - NEB 06/18/18 22:34 1 amp ONCE ONE Administration Azithromycin 500 mg/ Dextrose 250 mls @ 250 mls/hr 06/19/18 00:49 06/19/18 03 :07 IVPB 06/19/18 01:48 250 mls/hr ONCE ONE Administration Medical Decision Making - Medical Decision Making 06/19/18 03:47 Patient signed out to me pending influenza swabs a and urinalysis. Bowel swabs are negative. Urinalysis suggests dehydration, normal saline 500 mL bolus given prior to discharge On reevaluation at 3:45 AM patient is sleeping comfortably in no distress Breath sounds are currently clear, she is status post DuoNeb 2 given earlier in the emergency department Chest x-ray shows no acute change from previous Plan is for discharge home. 06/19/18 04:05 *DC/Admit/Observation/Transfer Diagnosis at time of Disposition: Cough Fall Qualifiers: Encounter type: initial encounter Qualified Code(s): W19.XXXA - Unspecified fall, initial encounter - Discharge Dispostion Disposition: HOME Condition at time of disposition: Stable Decision to Admit order: No - Referrals - Patient Instructions Printed Discharge Instructions: DI for Acute Bronchitis, How to Prevent Falls Additional Instructions: Follow-up with your regular physician. If you develop fever or any worsening in your condition return to the emergency department for repeat evaluation. - Post Discharge Activity - Attestations Physician Attestion: 06/19/18 03:55 I, Dr Rowan Colon, attest that this document has been prepared under my direction and personally reviewed by me in its entirety. I further attest, that it accurately reflects all work, procedures and medical decision making performed by me.
--- NOTE | 2018-06-19 14:56 | EKG ---
Test Reason : Blood Pressure : / mmHG Vent. Rate : 090 BPM Atrial Rate : 090 BPM P-R Int : 152 ms QRS Dur : 082 ms QT Int : 360 ms P-R-T Axes : 054 -28 035 degrees QTc Int : 440 ms NORMAL SINUS RHYTHM LOW VOLTAGE QRS CANNOT RULE OUT ANTERIOR INFARCT , AGE UNDETERMINED ABNORMAL ECG WHEN COMPARED WITH ECG OF 10-OCT-2017 21:00, NONSPECIFIC T WAVE ABNORMALITY NOW EVIDENT IN ANTERIOR LEADS Confirmed by RAF SUBRAMANIAN, ZACHARY ([id number]) on 06/19/2018 2:55:52 PM Referred By: Confirmed By:ZACHARY CARBONE MD
== END 2018-06-19 07:33 | disposition home or self-care (01) ==
LOC: JER 19:51
PROC: 3E0F7GC Introduction of Other Therapeutic Substance into Respiratory Tract, Via Natural or Artificial Opening (ICD-10-PCS; principal; 2018-06-18)
PROC: 3E0337Z Introduction of Electrolytic and Water Balance Substance into Peripheral Vein, Percutaneous Approach (ICD-10-PCS; 2018-06-18)
PROC: 3E03329 Introduction of Other Anti-infective into Peripheral Vein, Percutaneous Approach (ICD-10-PCS; 2018-06-18)
PROC: 3E03329 Introduction of Other Anti-infective into Peripheral Vein, Percutaneous Approach (ICD-10-PCS; 2018-06-18)
DX: R05 Cough (principal); S40.211A Abrasion of right shoulder, initial encounter; W06.XXXA Fall from bed, initial encounter; Y93.89 Activity, other specified; Y92.092 Bedroom in other non-institutional residence as the place of occurrence of the external cause; Y99.8 Other external cause status; G20 Parkinson's disease; F02.80 Dementia in other diseases classified elsewhere, unspecified severity, without behavioral disturbance, psychotic disturbance, mood disturbance, and anxiety
CPT/HCPCS: 36415; 70450-TC; 71046-TC-FY; 73030-TC-RT-FY; 80053; 81003; 81015; 83880; 84484; 85025; 85610; 87040; 87804; 93005; 93010; 94640; 96361; 96365; 96367; 99282-25